=== PATIENT | female | born 1965 | race African-American/Black ===

== ENCOUNTER 2025-04-19 12:30 | Observation (INO) ==
[2025-04-19] MEDS: FENTANYL VIAL INJ 100 mcg ONE (07:34)
[2025-04-19] MEDS: VERSED ONE (07:34)
[2025-04-19] MEDS: TORADOL 30 MG VIAL ONE (07:35)
[2025-04-19] MEDS: ZOFRAN INJ 4 MG VIAL ONE (07:35)
[2025-04-19] MEDS: ZEMURON 100 MG VIAL ONE (07:35)
[2025-04-19] MEDS: DIPRIVAN VIAL 20 ML ONE (07:36)
[2025-04-19] MEDS: OFIRMEV IV 1000 MG VIAL 1,000 MG/100 ML VIAL IV ONE (07:36)
[2025-04-19] MEDS: BRIDION ONE (07:36)
[2025-04-19] MEDS: XYLOCAINE 2 % (PLAIN) ONE (07:36)
[2025-04-19 07:40] VITALS: BMI 38.0
[2025-04-19] MEDS: LR 1,000 ML IV 1,000 ML IV ONE (07:40)
[2025-04-19] MEDS: PEPCID 20 MG VIAL ONE (07:44)
[2025-04-19] MEDS: LR 1,000 ML IV 800 ML IV PRN (07:45)
[2025-04-19] MEDS: PEPCID 20 MG VIAL IVP PRN (08:00)
[2025-04-19] MEDS: ZOFRAN INJ 4 MG VIAL IVP PRN ×2 (08:00→11:57)
[2025-04-19] MEDS: MARCAINE 0.25% INJ ONE (08:34)
[2025-04-19] MEDS: PRECEDEX INJ VIAL ONE (08:35)
[2025-04-19] MEDS: VERSED IVP PRN (08:35)
[2025-04-19] MEDS: NS 100 ML IV 100 ML ONE (08:40)
[2025-04-19] MEDS: ANCEF VIAL 1 GRAM ONE (08:40)
[2025-04-19] MEDS: ANCEF VIAL 1 GRAM IV PRN (08:45)
[2025-04-19] MEDS: DIPRIVAN VIAL 170 ML IVP PRN (08:59)
[2025-04-19] MEDS: KETAMINE HCL IV PRN (09:12)
[2025-04-19] MEDS: FENTANYL VIAL INJ 100 mcg IVP PRN (09:17)
[2025-04-19] MEDS: PRECEDEX INJ VIAL IVP PRN (09:19)
[2025-04-19] MEDS: EPHEDRINE SULFATE INJ IVP PRN (09:32)
[2025-04-19] MEDS: EPHEDRINE SULFATE INJ ONE (09:32)
[2025-04-19] MEDS: DILAUDID INJ ONE (10:06)
[2025-04-19] MEDS: ZEMURON 100 MG VIAL IVP PRN (10:07)
[2025-04-19] MEDS: OFIRMEV IV 1000 MG VIAL 1,000 MG/100 ML VIAL IV PRN (10:15)
[2025-04-19] MEDS: BRIDION IVP PRN (10:39)
[2025-04-19] MEDS: DILAUDID INJ IVP PRN ×3 (10:41→11:58)
[2025-04-19] MEDS: NS 1,000 ML IV 1,000 ML IV SCH (12:00)
[~2025-04-19 12:30] MED LIST: BARHEMSYS INJ IVP PRN; BENADRYL INJ 50 MG VIAL IVP PRN; KETAMINE HCL ONE; PRECEDEX INJ VIAL ONE; ULTANE GAS IN ONE; XYLOCAINE 2 % (PLAIN) PRN; ZOFRAN INJ 4 MG VIAL IVP PRN
[2025-04-19] MEDS: PERCOCET TAB 5/325 MG PO PRN (15:38)
[2025-04-19] MEDS ORDERED: PROVENTIL NEB TX 0.083% 2.5MG/ 3ML NEB PRN (17:52)
[2025-04-19] MEDS: COLACE CAP 100 MG PO SCH (21:01)
[2025-04-20] MEDS: TYLENOL 325 MG TAB PO ONE (00:29)
[2025-04-20 06:05] LABS: CREATININE 1.07 mg/dL (0.55-1.02); eGFR NON BLACK RACES 55 (>60)
--- NOTE | 2025-04-20 08:38 | NOTE.SOAP ---
Soap Note Note for Day of Date of Exam: 04/20/25 Subjective Data Subjective Data: Patient is s/p STJ fusion and TN fusion of the RLE. Patient states she is doing well with no significant pain to the surgical site. Patient denies calf pain and shortness of breath at this time. Objective Data Objective Data: Patient is AO x3 Dressing removed- xeroform remained intact over surgical sites clean,dry and intact. No erythema, drainage, or signs of infection at the surgical sites.Post- operative swelling consistent with surgical intervention- mild and within postoperative limits Below knee splint was noted to be in place prior to removal, CFT <3 sec to digits of the right foot, warm toes and ROM noted to the digits of the right foot. Intact sensation appreciated to the right foot. Assessment Assessment: POD #1 STJ fusion and TN fusion of the right foot Normal post-operative course with no signs of complications or infection at this time Patient is NWB in a splint Well-padded splint was reapplied to the RLE Plan Plan: district manager to see for Facility Placement PT to evaluate for NWB and facility placement Patient to remain NWB to the rle Patient educated on pain regimen, DVT prophylaxis Please apply ice underneath the knee as needed and keep patients' RLE elevated Will continue to manage as patient is pending discharge/facility placement
[2025-04-20] MEDS: ASPIRIN PO SCH (09:03)
[2025-04-20 09:20] VITALS: TEMP 99.1
[2025-04-20] MEDS: PROTONIX TAB 40 MG PO SCH (09:37)
[2025-04-20] MEDS: HYDROCHLOROTHIAZIDE 12.5 MG CAP PO SCH (09:37)
[2025-04-20] MEDS: ZOLOFT PO SCH (09:38)
[2025-04-20] MEDS: ALPRAZOLAM ODT PO PRN (09:41)
[2025-04-20] MEDS ORDERED: PHARMACY CONSULT XX SCH (10:00)
[2025-04-20 12:02] VITALS: BP 114/77; PULSE 109; RESP 21; O2SAT 98
== END 2025-04-20 14:15 | disposition home health service (06) ==
LOC: MED/SURG
PROVIDERS: ADMIT Obstetrics & Gynecology Obstetrics; ATTEND Obstetrics & Gynecology Obstetrics
DX: E87.1 Hypo-osmolality and hyponatremia; M19.071 Primary osteoarthritis, right ankle and foot; R26.89 Other abnormalities of gait and mobility; M24.571 Contracture, right ankle; G89.18 Other acute postprocedural pain